=== PATIENT | male | born 1960 | race Two or more races ===

== ENCOUNTER 2021-08-21 13:28 | Day surgery (SDC) | payer MEDICAID, SELFPAY ==
[2021-08-17 11:16] LABS: BASOPHILS % (AUTO) 0.6 % (0-1); EOSINOPHILS # (AUTO) 0.1 X10'3 (0-0.9); EOSINOPHILS % (AUTO) 2.3 % (0-6); HEMATOCRIT 45.8 % (42.0-52.0); HEMOGLOBIN 15.4 g/dl (14.0-17.9); LYMPHOCYTES # (AUTO) 1.2 X10'3 (1.1-4.8); LYMPHOCYTES % (AUTO) 21.2 % (21-51); MEAN CORPUSCULAR HEMOGLOBIN 28.7 PG (27.0-31.0); MEAN CORPUSCULAR HGB CONC 33.7 g/dL (33.0-36.5); MEAN CORPUSCULAR VOLUME 85.3 FL (78-98); MEAN PLATELET VOLUME 8.6 FL (7.4-10.4); MONOCYTES # (AUTO) 0.6 X10'3 (0-0.9); MONOCYTES % (AUTO) 10.5 % (2-12); NEUTROPHILS # (AUTO) 3.9 X10'3 (1.8-7.7); NEUTROPHILS % (AUTO) 65.4 % (42-75); PLATELET COUNT 233 X10'3 (140-440); RED BLOOD COUNT 5.37 X10'6 (4.70-6.10); RED CELL DISTRIBUTION WIDTH 13.4 % (11.5-14.5); WHITE BLOOD COUNT 5.9 X10'3 (4.5-11.0)
[2021-08-17 11:24] LABS: APTT 33 SECONDS (22-32)
[2021-08-17 11:26] LABS: ALBUMIN 3.8 G/DL (3.4-5.0); ANION GAP 5 (8-16); BLOOD UREA NITROGEN 24 MG/DL (7-18); CALCIUM 8.9 MG/DL (8.5-10.1); CHLORIDE 107 MMOL/L (99-107); CHOL/HDL RATIO 6.1 (0.00-4.99); CHOLESTEROL 219 MG/DL (0-200); CREATININE 1.09 MG/DL (0.60-1.10); GLUCOSE 92 MG/DL (70-104); HDL CHOLESTEROL 36 MG/DL (35-60); LDL CHOLESTEROL 149 MG/DL (50-100); POTASSIUM 4.6 MMOL/L (3.5-5.1); SODIUM 141 MMOL/L (135-145); TOTAL CARBON DIOXIDE 28.7 MMOL/L (24-32); TRIGLYCERIDES 83 MG/DL (20-135); eGFR 69 ML/MIN
[~2021-08-21] VITALS: Ht 170.2 cm; Wt 88.1 kg
[2021-08-21] VITALS (8 sets, daily range): BP systolic 128–152; BP diastolic 69–89
[~2021-08-21 13:28] MED LIST: iohexol 350MG/ML 100ml bottle IV ONE
[2021-08-21] MEDS ORDERED: normal saline 1,000 ML IV SCH (13:45)
[2021-08-21] MEDS ORDERED: LORazepam 0.5 MG tablet PO PRN (13:45)
[2021-08-21] MEDS ORDERED: diphenhydrAMINE 25mg capsule PO PRN (13:45)
[2021-08-21] MEDS ORDERED: NITR0.4T48 (13:49)
[2021-08-21] MEDS ORDERED: CHOL500049 PO (13:49)
[2021-08-21] MEDS ORDERED: ASPI-1071 PO (14:01)
[2021-08-21] MEDS ORDERED: ramipril PO (14:01)
[2021-08-21] MEDS ORDERED: ATOR40TA PO (14:01)
[2021-08-21] MEDS ORDERED: nitroGLYCERIN-Tridil 50MG/D5W 250 ML IV ONE (16:00)
[2021-08-21] MEDS ORDERED: midazolam 1 mg/ML 2ml injection ONE (16:01)
[2021-08-21] MEDS ORDERED: iohexol 350MG/ML 100ml bottle IV ONE (16:01)
[2021-08-21] MEDS ORDERED: heparin 1,000unit/ml 10ml vial 10 ML ONE (16:01)
[2021-08-21] MEDS ORDERED: fentaNYL/PF 50MCG/1 ML 2ML syringe ONE (16:01)
[2021-08-21] MEDS ORDERED: verapamil 2.5 mg/ml inj IV ONE (16:03)
== END 2021-08-21 19:05 | disposition home or self-care (01) ==
LOC: SSTAY O 13:28
PROVIDERS: ATTEND Internal Medicine Interventional Cardiology
DX: R07.89 Other chest pain (principal); I25.118 Atherosclerotic heart disease of native coronary artery with other forms of angina pectoris; I10 Essential (primary) hypertension; E78.5 Hyperlipidemia, unspecified; I45.10 Unspecified right bundle-branch block; Z95.5 Presence of coronary angioplasty implant and graft; Z79.82 Long term (current) use of aspirin; Z79.899 Other long term (current) drug therapy; Z87.891 Personal history of nicotine dependence
CPT/HCPCS: 36415; 80048; 80061; 85025; 85610; 85730; 93005; 93458; 99152; C1769; C1894; J1644; J2250; J3010; J3490; J7030; Q0163; Q9967; 99153; A5120; A6258; A6402

== ENCOUNTER 2021-09-20 05:28 | Inpatient (IN) | payer MEDICAID ==
[2021-09-19 14:33] LABS: BASOPHILS # (AUTO) 0.1 X10'3 (0-0.2); BASOPHILS % (AUTO) 1.2 % (0-1); EOSINOPHILS # (AUTO) 0.3 X10'3 (0-0.9); EOSINOPHILS % (AUTO) 3.8 % (0-6); LYMPHOCYTES # (AUTO) 1.7 X10'3 (1.1-4.8); LYMPHOCYTES % (AUTO) 24.9 % (21-51); MEAN CORPUSCULAR HGB CONC 34.1 g/dL (33.0-36.5); MEAN CORPUSCULAR VOLUME 85.1 FL (78-98); MEAN PLATELET VOLUME 8.6 FL (7.4-10.4); MONOCYTES # (AUTO) 0.7 X10'3 (0-0.9); MONOCYTES % (AUTO) 9.6 % (2-12); NEUTROPHILS # (AUTO) 4.1 X10'3 (1.8-7.7); NEUTROPHILS % (AUTO) 60.5 % (42-75); PRE OP HEMATOCRIT 42.3 % (42.0-52.0); PRE OP HEMOGLOBIN 14.4 g/dL (14.0-17.9); PRE OP PLATELET COUNT 208 X10'3 (140-440); RED BLOOD COUNT 4.96 X10'6 (4.70-6.10); RED CELL DISTRIBUTION WIDTH 13.3 % (11.5-14.5)
[2021-09-19 14:46] LABS: PRE OP INR 0.9 INR; PRE OP PROTIME 9.8 SECONDS (9.0-12.0)
[2021-09-19 14:47] LABS: HEMOGLOBIN A1C 5.4 % (4.5-6.2)
[2021-09-19 14:49] LABS: CLARITY,URINE CLEAR (Clear); COLOR,URINE YELLOW (Yellow); GLUCOSE, URINE NEGATIVE (Neg); KETONES,URINE NEGATIVE (Neg); LEUKOCYTE ESTERASE ,URINE NEGATIVE (Neg); NITRITES, URINE NEGATIVE (Neg); OCCULT BLOOD,URINE NEGATIVE (Neg); PH,URINE 5.5 (4.8-8.0); PROTEIN,URINE NEGATIVE (Neg); UROBILINOGEN,URINE 0.2 E.U/dL (0.2-1.0)
[2021-09-19 14:50] LABS: ALBUMIN 3.8 G/DL (3.4-5.0); ALBUMIN/GLOBULIN RATIO 1.1 (1.1-1.5); ALKALINE PHOSPHATASE 84 IU/L (46-116); BLOOD UREA NITROGEN 21 MG/DL (7-18); BUN/CREATININE RATIO 20.4 (5.4-32.0); CALCIUM 8.9 MG/DL (8.5-10.1); CHLORIDE 107 MMOL/L (99-107); CREATININE 1.03 MG/DL (0.60-1.10); PRE OP ALT 36 U/L (30-65); PRE OP ANION GAP 6 (8-16); PRE OP AST 18 U/L (10-37); PRE OP BILIRUB, TOTAL 0.4 MG/DL (0.0-1.0); PRE OP GLUCOSE 92 MG/DL (70-104); PRE OP POTASSIUM 4.6 MMOL/L (3.4-5.1); PRE OP SODIUM 142 MMOL/L (135-145); TOTAL CARBON DIOXIDE 29.2 MMOL/L (24-32); TOTAL PROTEIN 7.2 G/DL (6.4-8.2); eGFR 73 ML/MIN
[2021-09-19 14:50] LABS: UA COLLECTION TYPE CLN CATCH MIDSTREAM
[2021-09-19 14:51] LABS: ABG BASE EXCESS -1.1 mmol/L (-2.0-2.0); ABG PCO2 (T) 36.7 mmHg (35.0-48.0); ABG PO2 (T) 89.5 mmHg (75.0-100.0); ALLEN'S TEST POSITIVE; FCOHb 0.3 % (0.0-3.9); FMetHb 0.2 % (0.0-1.5); FO2Hb 96.5 % (94-97); TOTAL HEMOGLOBIN 14.9 G/dl (14.0-18.0)
[~2021-09-20] VITALS: Ht 172.7 cm; Wt 70.4 kg
[2021-09-20] VITALS (18 sets, daily range): BP systolic 95–145; BP diastolic 47–87
[~2021-09-20 05:28] MED LIST changes: +ALT5C PO; +ASPI-1071 PO; +ATOR40TA PO; +ISOS30TA84 PO; +METO25TA6 PO; +ceFAZolin 1000mg inj ONE; -iohexol 350MG/ML 100ml bottle IV ONE; +ringers solution, lacted 1,000 ML IV SCH
[2021-09-20] MEDS ORDERED: famotidine 20mg tablet PO ONE (05:30)
[2021-09-20] MEDS ORDERED: mupirocin 2% nasal ointment 1gm UD NS ONE (05:30)
[2021-09-20] MEDS ORDERED: DOCUMENT DATE & TIME OF BETA-BLOCKER PO ONE (05:30)
[2021-09-20] MEDS ORDERED: albuterol 2.5 MG/3 ML nebule NEB ONE (05:30)
[2021-09-20] MEDS ORDERED: gabapentin 400mg capsule PO ONE (05:30)
[2021-09-20] MEDS ORDERED: LORazepam 2 mg/ml vial IV PRN (05:30)
[2021-09-20] MEDS ORDERED: vancomycin 1,500 MG in NS 300ml IV soln IV ONE (05:30)
[2021-09-20] MEDS ORDERED: Insulin Reg/NS 100units/100mL 100 ML IV SCH ×2 (05:30→11:30)
[2021-09-20] MEDS ORDERED: dextrose 50%-water 50ml dispensing syringe IV PRN ×2 (05:30→11:30)
[2021-09-20] MEDS ORDERED: ceFAZolin inj. 2,000 MG in dextrose 5%-water 100 ML IV ONE (05:30)
[2021-09-20] MEDS ORDERED: epiNEPHrine 1 mg/ml inj ONE ×2 (06:19→09:21)
[2021-09-20] MEDS ORDERED: SUFENTANIL CITRATE 50 MCG/ML 2ml ampule IV ONE (07:12)
[2021-09-20] MEDS ORDERED: midazolam 1 mg/ML 2ml injection ONE (07:12)
[2021-09-20] MEDS ORDERED: sevoflurane 250ml liquid IH ONE (07:30)
[2021-09-20] MEDS ORDERED: protamine sulf. 10mg/ml inj. IV ONE (07:30)
[2021-09-20] MEDS ORDERED: INSULIN R 100 UNIT in NS 100ML (1 UNIT/1 ML) BAG IV ONE (07:30)
[2021-09-20] MEDS ORDERED: nitroGLYCERIN in D5W 50mg/250ml (Tridil) infusion IV ONE (07:30)
[2021-09-20] MEDS ORDERED: DOPamine/D5W 400mg/250ml bag IV ONE (07:30)
[2021-09-20] MEDS ORDERED: aminocaproic acid 250 MG/1 ML inj. ONE (08:00)
[2021-09-20] MEDS ORDERED: albumin (human) 25% 100 ML IV solution IV ONE (08:00)
[2021-09-20] MEDS ORDERED: heparin 10,000 units/1 ML INJ ONE (08:00)
[2021-09-20] MEDS ORDERED: sodium bicarbonate (8.4%) 1 mEq/ml syringe ONE (08:00)
[2021-09-20] MEDS ORDERED: methylPREDNISolone sod succ 1000mg vial ONE (08:00)
[2021-09-20] MEDS ORDERED: MAGNESIUM SULFATE 4 MEQ/ML (5gm/10ml) injection ONE (08:00)
[2021-09-20] MEDS ORDERED: LIDOcaine 2% (20 mg/ml) 5ml cardiac syringe ONE (08:00)
[2021-09-20] MEDS ORDERED: mannitol 12.5gm/50mL VIAL IV ONE (08:00)
[2021-09-20] MEDS ORDERED: NORepinephrine 1 mg/ml inj IV ONE (08:00)
[2021-09-20] MEDS ORDERED: heparin 1,000 units/ml 10ml inj ONE (08:00)
[2021-09-20] MEDS ORDERED: calcium chloride 100 MG/1 ML inj IV ONE (08:00)
[2021-09-20 08:12] LABS: ABG BASE EXCESS -0.4 mmol/L (-2.0-2.0); ABG HCO3 23.6 mmol/L (22.0-26.0); ABG OXYGEN SATURATION 99.8 % (94-97); ABG PCO2 36.5 mmHg (35.0-48.0); ABG PO2 396.3 mmHg (75.0-100.0); CL (ABG) 107 mmol/L (98-110); FCOHb 0.5 % (0.0-3.9); FMetHb 0.3 % (0.0-1.5); GLUCOSE (ABG) 96 mg/dl (70-105); IONIZED CA (ABG) 1.15 mmol/L (1.10-1.43); K (ABG) 4.4 mmol/L (3.5-5.0); TOTAL HEMOGLOBIN 13.8 G/dl (14.0-18.0)
[2021-09-20] MEDS ORDERED: phenylephrine 10mg/ml inj. ONE (09:21)
[2021-09-20] MEDS ORDERED: LIDOcaine 2% (20mg/ml) 5ml vial ONE (09:21)
[2021-09-20] MEDS ORDERED: rocuronium 10mg/ml inj IV ONE (09:21)
[2021-09-20] MEDS ORDERED: etomidate 2mg/ml inj. ONE (09:21)
[2021-09-20 09:29] LABS: ABG BASE EXCESS 0.6 mmol/L (-2.0-2.0); ABG HCO3 24.4 mmol/L (22.0-26.0); ABG OXYGEN SATURATION 99.4 % (94-97); ABG PCO2 35.7 mmHg (35.0-48.0); ABG PO2 322.3 mmHg (75.0-100.0); CL (ABG) 103 mmol/L (98-110); FCOHb 0.3 % (0.0-3.9); FMetHb 0.3 % (0.0-1.5); FO2Hb 98.8 % (94-97); GLUCOSE (ABG) 103 mg/dl (70-105); IONIZED CA (ABG) 0.98 mmol/L (1.10-1.43); K (ABG) 4.3 mmol/L (3.5-5.0); TOTAL HEMOGLOBIN 10.7 G/dl (14.0-18.0)
[2021-09-20] MEDS ORDERED: ipratropium/albuterol 3ml nebule IH PRN (09:40)
[2021-09-20 09:54] LABS: ABG BASE EXCESS VENOUS 0.9 mmol/L (-2.0 - 2.0); ABG HCO3 VENOUS 26.1 mmol/L (21.0-28.0); ABG PO2 VENOUS 49.7 mmHg (25.0-35.0); CL (ABG) 104 mmol/L (98-110); FCOHb VENOUS 0.2 %; FMetHb VENOUS 0.3 % (0.0 - 0.5); FO2Hb VENOUS 85.5 %; GLUCOSE (ABG) 117 mg/dl (70-105); IONIZED CA (ABG) 1.03 mmol/L (1.10-1.43); K (ABG) 5.3 mmol/L (3.5-5.0); TOTAL HEMOGLOBIN 11.3 G/dl (14.0-18.0)
[2021-09-20 10:37] LABS: ABG BASE EXCESS -0.6 mmol/L (-2.0-2.0); ABG HCO3 23.7 mmol/L (22.0-26.0); ABG OXYGEN SATURATION 99.4 % (94-97); ABG PCO2 37.5 mmHg (35.0-48.0); ABG PO2 343.8 mmHg (75.0-100.0); CL (ABG) 104 mmol/L (98-110); FCOHb 0.4 % (0.0-3.9); FMetHb 0.3 % (0.0-1.5); FO2Hb 98.7 % (94-97); GLUCOSE (ABG) 131 mg/dl (70-105); IONIZED CA (ABG) 1.01 mmol/L (1.10-1.43); K (ABG) 5.6 mmol/L (3.5-5.0); TOTAL HEMOGLOBIN 11.2 G/dl (14.0-18.0)
[2021-09-20] MEDS ORDERED: SUfentanil 50mcg/ml 1ml amp IV ONE (11:03)
[2021-09-20 11:19] LABS: ABG BASE EXCESS VENOUS -0.5 mmol/L (-2.0 - 2.0); ABG PCO2 VENOUS 44.6 mmHg (41.0-54.0); CL (ABG) 102 mmol/L (98-110); FCOHb VENOUS 0.5 %; FHHb VENOUS 19.4 %; FMetHb VENOUS 0.3 % (0.0 - 0.5); FO2Hb VENOUS 79.8 %; GLUCOSE (ABG) 127 mg/dl (70-105); IONIZED CA (ABG) 1.17 mmol/L (1.10-1.43); K (ABG) 4.5 mmol/L (3.5-5.0)
[2021-09-20] MEDS ORDERED: potassium Cl 20 mEq SR tablet PO PRN (11:30)
[2021-09-20] MEDS ORDERED: DOPamine 400mg/D5W 250ml 250 ML IV PRN (11:30)
[2021-09-20] MEDS ORDERED: Neutra Phos packet PO PRN (11:30)
[2021-09-20] MEDS ORDERED: ondansetron/PF 4mg/2ml inj IV PRN (11:30)
[2021-09-20] MEDS ORDERED: bisacodyl 10mg suppository rectal RC PRN (11:30)
[2021-09-20] MEDS ORDERED: nitroGLYCERIN-Tridil 50MG/D5W 250 ML IV PRN ×2 (11:30→11:56)
[2021-09-20] MEDS ORDERED: magnesium citrate 296ml oral solution PO PRN (11:30)
[2021-09-20] MEDS ORDERED: sodium chloride 0.45% 1,000 ML IV SCH (11:30)
[2021-09-20] MEDS ORDERED: normal saline 250ml IV soln 250 ML IV PRN (11:30)
[2021-09-20] MEDS ORDERED: insulin glargine (Lantus) pen - multi-dose SQ PRN (11:30)
[2021-09-20] MEDS ORDERED: sodium phosphate inj. 15 MMOL in dextrose 5%-water 250 ML IV PRN (11:30)
[2021-09-20] MEDS ORDERED: potassium CL 10mEq/100ml bag 100 ML IV PRN (11:30)
[2021-09-20] MEDS ORDERED: sodium phosphate inj. 30 MMOL in dextrose 5%-water 250 ML IV PRN (11:30)
[2021-09-20] MEDS ORDERED: metoclopramide 5 mg/ml inj IV PRN (11:30)
[2021-09-20] MEDS ORDERED: morphine 2 MG/ML inj. syringe IV PRN (11:30)
[2021-09-20] MEDS ORDERED: magnesium hydroxide 30ml (MOM) UD suspension PO PRN (11:30)
[2021-09-20] MEDS ORDERED: mineral oil 133ml enema RC PRN (11:30)
[2021-09-20] MEDS ORDERED: acetaminophen 325mg tablet PO PRN ×2 (11:30)
[2021-09-20] MEDS ORDERED: magnesium 4gm in 100ml NS 100 ML IV PRN (11:30)
[2021-09-20] MEDS ORDERED: niCARDipine-NS 40mg/200ml IVPB 200 ML IV PRN ×2 (11:30→11:56)
--- NOTE | 2021-09-20 11:45 | NUR ---
Received to room 2009, accompanied by MDs and surgical crew. Placed on ventilator, to residential monitor, arterial line and PA line pressure zeroed & monitored. Chest tubes to suction at 20 cm. Saldivar cath to gravity drainage. Dressings are dry and intact. See assessment record. All vasoactive drugs are infusing via central line.
[2021-09-20] MEDS ORDERED: acetaminophen 1,000mg/100ml IV 100 ML IV ONE (11:47)
[2021-09-20 11:56] LABS: BASOPHILS % (AUTO) 0.2 % (0-1); EOSINOPHILS # (AUTO) 0.1 X10'3 (0-0.9); EOSINOPHILS % (AUTO) 0.7 % (0-6); HEMATOCRIT 37.9 % (42.0-52.0); HEMOGLOBIN 12.9 g/dl (14.0-17.9); LYMPHOCYTES # (AUTO) 0.9 X10'3 (1.1-4.8); LYMPHOCYTES % (AUTO) 7.4 % (21-51); MEAN CORPUSCULAR HEMOGLOBIN 28.9 PG (27.0-31.0); MEAN PLATELET VOLUME 8.6 FL (7.4-10.4); MONOCYTES # (AUTO) 0.6 X10'3 (0-0.9); MONOCYTES % (AUTO) 5.1 % (2-12); NEUTROPHILS # (AUTO) 10.4 X10'3 (1.8-7.7); NEUTROPHILS % (AUTO) 86.6 % (42-75); PLATELET COUNT 146 X10'3 (140-440); RED BLOOD COUNT 4.46 X10'6 (4.70-6.10); RED CELL DISTRIBUTION WIDTH 13.4 % (11.5-14.5)
--- NOTE | 2021-09-20 12:04 | NUR ---
Nutrition consult: Pt s/p CABG x 5 today. Pt would benefit from nutrition therapy education once stable. Will continue to follow. Addendum: 09/20/21 at [address] Amended: Links added.
[2021-09-20 12:07] LABS: ABG BASE EXCESS -2.4 mmol/L (-2.0-2.0); ABG OXYGEN SATURATION 99.3 % (94-97); ABG PCO2 (T) 34.7 mmHg (35.0-48.0); ABG PO2 (T) 247.5 mmHg (75.0-100.0); FCOHb 0.3 % (0.0-3.9); FMetHb 0.4 % (0.0-1.5); FO2Hb 98.6 % (94-97); PATIENT TEMPERATURE 35.6; PEEP 5 cm H2O; RESPIRATORY RATE 12 b/min; TIDAL VOLUME 600 mL; TOTAL HEMOGLOBIN 14.2 G/dl (14.0-18.0)
[2021-09-20 12:12] LABS: APTT 27 SECONDS (22-32)
[2021-09-20 12:15] LABS: ALANINE AMINOTRANSFERASE 27 U/L (12-78); ALBUMIN 3.1 G/DL (3.4-5.0); ALBUMIN/GLOBULIN RATIO 1.4 (1.1-1.5); ALKALINE PHOSPHATASE 57 IU/L (46-116); ANION GAP 8 (8-16); ASPARTATE AMINO TRANSFERASE 27 U/L (10-37); BILIRUBIN,TOTAL 0.9 MG/DL (0.1-1.0); BLOOD UREA NITROGEN 21 MG/DL (7-18); BUN/CREATININE RATIO 19.3 (5.4-32.0); CALCIUM 8.1 MG/DL (8.5-10.1); CHLORIDE 106 MMOL/L (99-107); CREATININE 1.09 MG/DL (0.60-1.10); GLUCOSE 136 MG/DL (70-104); MAGNESIUM 2.3 MG/DL (1.5-2.4); PHOSPHORUS 3.3 MG/DL (2.3-4.5); SODIUM 140 MMOL/L (135-145); TOTAL CARBON DIOXIDE 25.7 MMOL/L (24-32); TOTAL PROTEIN 5.3 G/DL (6.4-8.2); eGFR 69 ML/MIN
[2021-09-20] MEDS: potassium Cl 20mEq/100mL bag 100 ML IV PRN ×4 (12:29→19:07)
[2021-09-20] MEDS: gabapentin 300mg capsule PO SCH ×2 (12:30→21:21)
[2021-09-20] MEDS: magnesium 2GM in 50ml NS 50 ML IV PRN (12:30)
[2021-09-20] MEDS: ketorolac tromethamine 15mg/ml inj. IV SCH ×2 (14:14→20:19)
[2021-09-20] MEDS: albumin (Human) 5% 250ml 250 ML IV PRN ×2 (14:42→15:28)
[2021-09-20] MEDS: ceFAZolin/D5W- 1GM premix 50 ML IV SCH (15:32)
--- NOTE | 2021-09-20 15:41 | NUR ---
SBP in the upper 80s with CI of 1.9, 2nd Albumin administered as ordered.
[2021-09-20] MEDS: morphine 4 MG/ML inj SYRINge IV PRN (16:51)
[2021-09-20 17:26] LABS: BASOPHILS % (AUTO) 0.1 % (0-1); EOSINOPHILS % (AUTO) 0.1 % (0-6); HEMATOCRIT 37.8 % (42.0-52.0); HEMOGLOBIN 12.6 g/dl (14.0-17.9); LYMPHOCYTES # (AUTO) 0.6 X10'3 (1.1-4.8); LYMPHOCYTES % (AUTO) 3.9 % (21-51); MEAN CORPUSCULAR HEMOGLOBIN 28.4 PG (27.0-31.0); MEAN CORPUSCULAR HGB CONC 33.3 g/dL (33.0-36.5); MEAN CORPUSCULAR VOLUME 85.3 FL (78-98); MONOCYTES # (AUTO) 0.7 X10'3 (0-0.9); MONOCYTES % (AUTO) 5.1 % (2-12); NEUTROPHILS # (AUTO) 12.8 X10'3 (1.8-7.7); NEUTROPHILS % (AUTO) 90.8 % (42-75); PLATELET COUNT 149 X10'3 (140-440); RED BLOOD COUNT 4.43 X10'6 (4.70-6.10); RED CELL DISTRIBUTION WIDTH 13.5 % (11.5-14.5); WHITE BLOOD COUNT 14.1 X10'3 (4.5-11.0)
[2021-09-20 17:34] LABS: ALBUMIN 3.5 G/DL (3.4-5.0); ANION GAP 7 (8-16); BLOOD UREA NITROGEN 21 MG/DL (7-18); BUN/CREATININE RATIO 16.8 (5.4-32.0); CALCIUM 7.9 MG/DL (8.5-10.1); CHLORIDE 111 MMOL/L (99-107); CREATININE 1.25 MG/DL (0.60-1.10); GLUCOSE 113 MG/DL (70-104); MAGNESIUM 2.5 MG/DL (1.5-2.4); PHOSPHORUS 3.4 MG/DL (2.3-4.5); POTASSIUM 3.9 MMOL/L (3.5-5.1); SODIUM 142 MMOL/L (135-145); TOTAL CARBON DIOXIDE 23.7 MMOL/L (24-32); eGFR 59 ML/MIN
[2021-09-20 17:48] LABS: ABG BASE EXCESS -6.7 mmol/L (-2.0-2.0); ABG HCO3 17.9 mmol/L (22.0-26.0); ABG PCO2 (T) 33.1 mmHg (35.0-48.0); ABG PO2 (T) 119.9 mmHg (75.0-100.0); FMetHb 0.3 % (0.0-1.5); FO2Hb 97.7 % (94-97); PEEP 5 cm H2O; TIDAL VOLUME 468 mL; TOTAL HEMOGLOBIN 13.3 G/dl (14.0-18.0)
--- NOTE | 2021-09-20 18:00 | NUR ---
ABG with normalized pH with slightly decreased pCO2 and Bicarb; orders to extubate per Dr. Perez. CI 3.1; okay to D/C [place] line.
--- NOTE | 2021-09-20 18:17 | NUR ---
Problems reprioritized. Patient report given, questions answered & plan of care reviewed with Louise BLOUNT.
--- NOTE | 2021-09-20 19:00 | NUR ---
Received report from MINE Amaya; questions answered; pt sleepy but arousable, no complaints at this time; pt in SR, BP stable, small amt of tridil for grafts; remains on insulin gtt; minimal from CTs, UO adeq.
[2021-09-20] MEDS: sennosides/docusate sodium tablet PO SCH (20:00)
[2021-09-20] MEDS: vancomycin/NS 1 GM ADD-VANTAGE 250 ML IV SCH (20:19)
[2021-09-20] MEDS: atorvastatin 10mg tablet PO SCH (20:41)
--- NOTE | 2021-09-20 22:00 | NUR ---
Pt sleeping when not disturbed; good pain control w/morphine and toradol; VS remain stable, PA line d/c's per orders; UO borderline.
[2021-09-21] VITALS (24 sets, daily range): BP systolic 97–122; BP diastolic 50–76
[2021-09-21] MEDS: ceFAZolin/D5W- 1GM premix 50 ML IV SCH ×4 (00:12→23:15)
[2021-09-21] MEDS: morphine 4 MG/ML inj SYRINge IV PRN ×3 (01:06→10:50)
[2021-09-21] MEDS: mupirocin 2% nasal ointment 1gm UD NS SCH ×3 (01:07→19:47)
--- NOTE | 2021-09-21 02:15 | NUR ---
Pt sleeping after medicated for pain; no change in status; VS, SR, good BP, UO remains borderline. minimal serosang from CTs.
[2021-09-21] MEDS: ketorolac tromethamine 15mg/ml inj. IV SCH ×2 (02:16→07:47)
[2021-09-21 03:04] LABS: BASOPHILS % (AUTO) 0 % (0-1); EOSINOPHILS % (AUTO) 0 % (0-6); HEMATOCRIT 37.6 % (42.0-52.0); HEMOGLOBIN 12.3 g/dl (14.0-17.9); LYMPHOCYTES # (AUTO) 0.6 X10'3 (1.1-4.8); LYMPHOCYTES % (AUTO) 4.1 % (21-51); MEAN CORPUSCULAR HEMOGLOBIN 28.3 PG (27.0-31.0); MEAN CORPUSCULAR HGB CONC 32.8 g/dL (33.0-36.5); MEAN CORPUSCULAR VOLUME 86.3 FL (78-98); MEAN PLATELET VOLUME 9.1 FL (7.4-10.4); MONOCYTES # (AUTO) 0.7 X10'3 (0-0.9); MONOCYTES % (AUTO) 4.8 % (2-12); NEUTROPHILS # (AUTO) 13.1 X10'3 (1.8-7.7); NEUTROPHILS % (AUTO) 91.1 % (42-75); PLATELET COUNT 147 X10'3 (140-440); RED BLOOD COUNT 4.35 X10'6 (4.70-6.10); RED CELL DISTRIBUTION WIDTH 13.8 % (11.5-14.5); WHITE BLOOD COUNT 14.4 X10'3 (4.5-11.0)
[2021-09-21 03:10] LABS: APTT 25 SECONDS (22-32)
[2021-09-21 03:17] LABS: ALANINE AMINOTRANSFERASE 28 U/L (12-78); ALBUMIN 3.4 G/DL (3.4-5.0); ALBUMIN/GLOBULIN RATIO 1.4 (1.1-1.5); ALKALINE PHOSPHATASE 48 IU/L (46-116); ANION GAP 9 (8-16); ASPARTATE AMINO TRANSFERASE 25 U/L (10-37); BILIRUBIN,TOTAL 0.7 MG/DL (0.1-1.0); BLOOD UREA NITROGEN 24 MG/DL (7-18); BUN/CREATININE RATIO 24.7 (5.4-32.0); CALCIUM 7.8 MG/DL (8.5-10.1); CHLORIDE 107 MMOL/L (99-107); CREATININE 0.97 MG/DL (0.60-1.10); GLUCOSE 135 MG/DL (70-104); MAGNESIUM 2.2 MG/DL (1.5-2.4); PHOSPHORUS 4.6 MG/DL (2.3-4.5); POTASSIUM 4.4 MMOL/L (3.5-5.1); SODIUM 140 MMOL/L (135-145); TOTAL CARBON DIOXIDE 24.4 MMOL/L (24-32); TOTAL PROTEIN 5.8 G/DL (6.4-8.2); eGFR 79 ML/MIN
[2021-09-21 05:51] LABS: ACT @ 1.70 U 249 SEC (193-297); ACT @ 2.84 U 364 SEC (260-420); BASELINE ACT 138 SEC (101-148); PATIENT WEIGHT 88.0k KG
[2021-09-21 05:52] LABS: ACTIVATED CLOTTING TIME 113 SEC (101-148)
[2021-09-21] MEDS: potassium Cl 20mEq/100mL bag 100 ML IV PRN ×3 (06:15→12:53)
--- NOTE | 2021-09-21 06:31 | NUR ---
Pt medicated with morphine for good pain control; VS remain stable, UO remains borderline; report given to MINE Amaya; questions answered.
[2021-09-21] MEDS: vancomycin/NS 1 GM ADD-VANTAGE 250 ML IV SCH ×2 (07:47→19:47)
[2021-09-21] MEDS: gabapentin 300mg capsule PO SCH ×3 (07:48→19:47)
[2021-09-21] MEDS: sennosides/docusate sodium tablet PO SCH ×2 (07:48→19:47)
[2021-09-21] MEDS: aspirin 81mg tab.chew PO SCH (07:48)
[2021-09-21] MEDS: HYDROcodone/acetaminophen 10/325mg tab PO PRN ×5 (08:24→22:50)
[2021-09-21] MEDS: metoprolol tartrate 12.5mg (1/2 tablet) PO SCH ×2 (08:24→19:47)
--- NOTE | 2021-09-21 10:11 | NUR ---
Patient report given to Aleja Soler RN with all questions answered. RN aware to give next dose of Magnesium once Potassium is transfused.
--- NOTE | 2021-09-21 10:50 | NUR ---
at bedside Pt states has pain in left shoulder 4/10 " Pain meds given earlier for pain "states helped some" VSS med with MS as ordered Reposit for comfort
--- NOTE | 2021-09-21 12:16 | NUR ---
Pt resting with no c/o
--- NOTE | 2021-09-21 13:00 | NUR ---
pt assist up to bedside chair harriet well Did IS and flutter valve weak non prod cough noted Has mod amt of pain with coughing states pain meds help
--- NOTE | 2021-09-21 14:22 | NUR ---
Pt assist back to bed C/o fo inc pain med with lisaco at bedside
--- NOTE | 2021-09-21 17:30 | NUR ---
amb in ortiz 100 feet sl dizzy and unsteady VSS sat 88 % 0n Room air Assist to chair at bedside present Chest tubes with mod amt of sero sang drainage
--- NOTE | 2021-09-21 18:10 | NUR ---
Problems reprioritized. Patient report given, questions answered & plan of care reviewed with Andree RN.
[2021-09-21] MEDS: atorvastatin 10mg tablet PO SCH (19:47)
[2021-09-22] VITALS (18 sets, daily range): BP systolic 95–147; BP diastolic 63–84
[2021-09-22 02:21] LABS: BASOPHILS % (AUTO) 0.1 % (0-1); EOSINOPHILS % (AUTO) 0 % (0-6); HEMATOCRIT 37.1 % (42.0-52.0); HEMOGLOBIN 12.4 g/dl (14.0-17.9); LYMPHOCYTES # (AUTO) 0.7 X10'3 (1.1-4.8); LYMPHOCYTES % (AUTO) 3.8 % (21-51); MEAN CORPUSCULAR HEMOGLOBIN 28.9 PG (27.0-31.0); MEAN CORPUSCULAR HGB CONC 33.4 g/dL (33.0-36.5); MEAN CORPUSCULAR VOLUME 86.7 FL (78-98); MEAN PLATELET VOLUME 9.3 FL (7.4-10.4); MONOCYTES # (AUTO) 1.7 X10'3 (0-0.9); MONOCYTES % (AUTO) 9.3 % (2-12); NEUTROPHILS # (AUTO) 16.1 X10'3 (1.8-7.7); NEUTROPHILS % (AUTO) 86.8 % (42-75); PLATELET COUNT 151 X10'3 (140-440); RED BLOOD COUNT 4.28 X10'6 (4.70-6.10); RED CELL DISTRIBUTION WIDTH 14.1 % (11.5-14.5); WHITE BLOOD COUNT 18.6 X10'3 (4.5-11.0)
[2021-09-22 02:49] LABS: ALBUMIN 3.1 G/DL (3.4-5.0); ANION GAP 4 (8-16); BLOOD UREA NITROGEN 28 MG/DL (7-18); CHLORIDE 103 MMOL/L (99-107); CREATININE 1.12 MG/DL (0.60-1.10); GLUCOSE 127 MG/DL (70-104); MAGNESIUM 2.1 MG/DL (1.5-2.4); PHOSPHORUS 3.1 MG/DL (2.3-4.5); POTASSIUM 5.4 MMOL/L (3.5-5.1); SODIUM 134 MMOL/L (135-145); eGFR 67 ML/MIN
[2021-09-22] MEDS: HYDROcodone/acetaminophen 10/325mg tab PO PRN ×6 (03:08→20:04)
[2021-09-22] MEDS: magnesium 2GM in 50ml NS 50 ML IV PRN (04:17)
--- NOTE | 2021-09-22 06:30 | NUR ---
Patient in room CICU 2008. I have received report from Andree BLOUNT and had the opportunity to ask questions and assume patient care.
--- NOTE | 2021-09-22 07:30 | NUR ---
Assist up to chair harriet well VSS Doing IS and Flutter value on own Chest tube with mod amt of serous sang drainage Lung sounds clear but diminished
[2021-09-22] MEDS: pantoprazole 40mg Tablet.DR PO SCH (07:41)
[2021-09-22] MEDS: metoprolol tartrate 12.5mg (1/2 tablet) PO SCH ×2 (08:34→19:57)
[2021-09-22] MEDS: mupirocin 2% nasal ointment 1gm UD NS SCH (08:34)
[2021-09-22] MEDS: sennosides/docusate sodium tablet PO SCH ×2 (08:35→19:56)
[2021-09-22] MEDS: aspirin 81mg tab.chew PO SCH (08:35)
[2021-09-22] MEDS: gabapentin 300mg capsule PO SCH (08:35)
[2021-09-22] MEDS: furosemide 40mg/4ml inj IV SCH (09:56)
--- NOTE | 2021-09-22 10:00 | NUR ---
Amb with PT harriet well back to bed Dr Perez at bedside Chest tubes removed and pacing wires removed without difficulty Lasix to be given will d/tr tinoco
[2021-09-22] MEDS: ketorolac tromethamine 15mg/ml inj. IV SCH ×2 (11:15→19:58)
--- NOTE | 2021-09-22 12:00 | NUR ---
Problems reprioritized. Patient report given, questions answered & plan of care reviewed with Dangelo BLOUNT.
--- NOTE | 2021-09-22 12:00 | NUR ---
Patient in room CICU 2009. I have received report from Aleja and had the opportunity to ask questions and assume patient care.
--- NOTE | 2021-09-22 16:42 | NUR ---
Report called to receiving nurse Candice. Transferred via wheelchair Belongings with patient . NO issues in transport. Special Issues communicated to receiving nurse.
--- NOTE | 2021-09-22 16:51 | NUR ---
Patient in room PCU 3010. I have received report from Dangelo BLOUNT and had the opportunity to ask questions and assume patient care.
--- NOTE | 2021-09-22 18:33 | NUR ---
patient appears stable ,orientated to room . present. VSS. Dressing to mid chest CDI . Medicated for pain 1729. Report given to Kamilla BLOUNT
[2021-09-22] MEDS: atorvastatin 10mg tablet PO SCH (20:00)
[2021-09-23 02:00] VITALS: BP 115/76
[2021-09-23] MEDS: ketorolac tromethamine 15mg/ml inj. IV SCH ×2 (02:16→09:59)
[2021-09-23 06:00] VITALS: BP 139/78
[2021-09-23 06:08] LABS: BASOPHILS % (AUTO) 0.1 % (0-1); EOSINOPHILS # (AUTO) 0.1 X10'3 (0-0.9); EOSINOPHILS % (AUTO) 1.1 % (0-6); HEMATOCRIT 35.8 % (42.0-52.0); LYMPHOCYTES # (AUTO) 1.1 X10'3 (1.1-4.8); LYMPHOCYTES % (AUTO) 9.8 % (21-51); MEAN CORPUSCULAR HEMOGLOBIN 28.9 PG (27.0-31.0); MEAN CORPUSCULAR HGB CONC 33.5 g/dL (33.0-36.5); MEAN CORPUSCULAR VOLUME 86.5 FL (78-98); MEAN PLATELET VOLUME 9.4 FL (7.4-10.4); MONOCYTES # (AUTO) 1.6 X10'3 (0-0.9); NEUTROPHILS # (AUTO) 8.5 X10'3 (1.8-7.7); PLATELET COUNT 141 X10'3 (140-440); RED BLOOD COUNT 4.14 X10'6 (4.70-6.10); RED CELL DISTRIBUTION WIDTH 13.7 % (11.5-14.5); WHITE BLOOD COUNT 11.3 X10'3 (4.5-11.0)
--- NOTE | 2021-09-23 06:39 | NUR ---
Patient in room PCU 3010. I have received report from Filemon BLOUNT and had the opportunity to ask questions and assume patient care.
[2021-09-23 06:52] LABS: ALBUMIN 2.9 G/DL (3.4-5.0); ANION GAP 5 (8-16); BLOOD UREA NITROGEN 33 MG/DL (7-18); BUN/CREATININE RATIO 30.3 (5.4-32.0); CALCIUM 8.3 MG/DL (8.5-10.1); CHLORIDE 102 MMOL/L (99-107); CREATININE 1.09 MG/DL (0.60-1.10); GLUCOSE 100 MG/DL (70-104); MAGNESIUM 2.1 MG/DL (1.5-2.4); PHOSPHORUS 3.3 MG/DL (2.3-4.5); POTASSIUM 4.5 MMOL/L (3.5-5.1); SODIUM 136 MMOL/L (135-145); TOTAL CARBON DIOXIDE 29.5 MMOL/L (24-32); eGFR 69 ML/MIN
[2021-09-23] MEDS ORDERED: magnesium citrate 296ml oral solution PO ONE (08:20)
[2021-09-23] MEDS ORDERED: HYDR-3972 PO (08:23)
[2021-09-23] MEDS: pantoprazole 40mg Tablet.DR PO SCH (09:57)
[2021-09-23] MEDS: sennosides/docusate sodium tablet PO SCH ×2 (09:57→20:00)
[2021-09-23] MEDS: metoprolol tartrate 12.5mg (1/2 tablet) PO SCH ×2 (09:58→20:13)
[2021-09-23] MEDS: furosemide 40mg/4ml inj IV SCH (10:01)
[2021-09-23] MEDS: aspirin 81mg tab.chew PO SCH (10:09)
[2021-09-23 11:00] VITALS: BP 161/91
[2021-09-23 15:00] VITALS: BP 122/72
[2021-09-23] MEDS: HYDROcodone/acetaminophen 10/325mg tab PO PRN ×2 (16:56→21:13)
[2021-09-23 18:00] VITALS: BP 121/64
[2021-09-23] MEDS: atorvastatin 10mg tablet PO SCH (20:13)
[2021-09-23 22:00] VITALS: BP 107/70
[2021-09-24] MEDS: HYDROcodone/acetaminophen 10/325mg tab PO PRN ×2 (05:19→09:36)
--- NOTE | 2021-09-24 06:23 | NUR ---
Patient in room PCU 3010. I have received report from Elaine BLOUNT and had the opportunity to ask questions and assume patient care.
[2021-09-24 06:46] VITALS: BP 121/72
[2021-09-24 06:51] LABS: BASOPHILS % (AUTO) 0.4 % (0-1); EOSINOPHILS # (AUTO) 0.2 X10'3 (0-0.9); EOSINOPHILS % (AUTO) 3.2 % (0-6); HEMATOCRIT 37.5 % (42.0-52.0); HEMOGLOBIN 12.5 g/dl (14.0-17.9); LYMPHOCYTES # (AUTO) 0.7 X10'3 (1.1-4.8); LYMPHOCYTES % (AUTO) 10.6 % (21-51); MEAN CORPUSCULAR HEMOGLOBIN 28.6 PG (27.0-31.0); MEAN CORPUSCULAR HGB CONC 33.3 g/dL (33.0-36.5); MEAN CORPUSCULAR VOLUME 85.8 FL (78-98); MEAN PLATELET VOLUME 9.2 FL (7.4-10.4); MONOCYTES # (AUTO) 1.1 X10'3 (0-0.9); MONOCYTES % (AUTO) 17.1 % (2-12); NEUTROPHILS # (AUTO) 4.5 X10'3 (1.8-7.7); NEUTROPHILS % (AUTO) 68.7 % (42-75); PLATELET COUNT 160 X10'3 (140-440); RED BLOOD COUNT 4.37 X10'6 (4.70-6.10); RED CELL DISTRIBUTION WIDTH 13.7 % (11.5-14.5); WHITE BLOOD COUNT 6.6 X10'3 (4.5-11.0)
[2021-09-24 07:06] LABS: ALBUMIN 2.7 G/DL (3.4-5.0); ANION GAP 4 (8-16); BLOOD UREA NITROGEN 26 MG/DL (7-18); BUN/CREATININE RATIO 27.1 (5.4-32.0); CALCIUM 8.6 MG/DL (8.5-10.1); CHLORIDE 105 MMOL/L (99-107); CREATININE 0.96 MG/DL (0.60-1.10); GLUCOSE 100 MG/DL (70-104); MAGNESIUM 2.1 MG/DL (1.5-2.4); PHOSPHORUS 3.1 MG/DL (2.3-4.5); POTASSIUM 4.3 MMOL/L (3.5-5.1); SODIUM 141 MMOL/L (135-145); TOTAL CARBON DIOXIDE 31.7 MMOL/L (24-32); eGFR 80 ML/MIN
[2021-09-24 07:30] LABS: PLATELET ESTIMATE NORMAL; TOTAL CELLS COUNTED 100
[2021-09-24] MEDS: aspirin 81mg tab.chew PO SCH (09:03)
[2021-09-24 09:04] VITALS: BP_SYST 121
[2021-09-24] MEDS: sennosides/docusate sodium tablet PO SCH (09:04)
[2021-09-24] MEDS: metoprolol tartrate 12.5mg (1/2 tablet) PO SCH (09:04)
[2021-09-24] MEDS: furosemide 40mg/4ml inj IV SCH (09:06)
--- NOTE | 2021-09-24 10:40 | NUR ---
PAGER ID: [phone] MESSAGE: [phone] [id number] Re: [id number] Patient sats at 88% on 6L NC, notified Letha, put patient back on HIGH flow at this time. Will notify RT to be more aggressive in titration. Thanks Addendum: 09/24/21 at 1041 by Yan Riley RN note entered on incorrect patient disreguard.
--- NOTE | 2021-09-24 11:21 | NUR ---
Orienty documentation: I have reviewed all interventions, assessments performed and documented by Carina BLOUNT.
--- NOTE | 2021-09-24 11:31 | NUR ---
Patient taken to private car via wheelchair accompanied by , condition stable. Personal belongings with patient. Patient expressed verbal understanding of discharge teaching and medications.
== END 2021-09-24 10:35 | disposition home or self-care (01) | DRG 166 ==
LOC: PAS IN 05:28 → CICU 2S 08:32 → PCU 3S 09-22 16:50
PROVIDERS: ADMIT Thoracic Surgery (Cardiothoracic Vascular Surgery); ATTEND Thoracic Surgery (Cardiothoracic Vascular Surgery)
PROC: 02100Z8 Bypass Coronary Artery, One Artery from Right Internal Mammary, Open Approach (ICD-10-PCS; 2021-09-20)
PROC: 0210093 Bypass Coronary Artery, One Artery from Coronary Artery with Autologous Venous Tissue, Open Approach (ICD-10-PCS; 2021-09-20)
PROC: 5A1221Z Performance of Cardiac Output, Continuous (ICD-10-PCS; 2021-09-20)
PROC: B24BZZ4 Ultrasonography of Heart with Aorta, Transesophageal (ICD-10-PCS; 2021-09-20)
PROC: 06BP4ZZ Excision of Right Saphenous Vein, Percutaneous Endoscopic Approach (ICD-10-PCS; 2021-09-20)
PROC: 021109W Bypass Coronary Artery, Two Arteries from Aorta with Autologous Venous Tissue, Open Approach (ICD-10-PCS; 2021-09-20)
PROC: 02100Z9 Bypass Coronary Artery, One Artery from Left Internal Mammary, Open Approach (ICD-10-PCS; principal; 2021-09-20 07:30)
DX: I25.10 Atherosclerotic heart disease of native coronary artery without angina pectoris (principal); E78.5 Hyperlipidemia, unspecified; I10 Essential (primary) hypertension; R44.3 Hallucinations, unspecified
CPT/HCPCS: 36415; 36600; 71045; 71046; 80048; 80053; 81003; 82330; 82435; 82803; 82947; 82948; 83036; 83735; 84100; 84132; 84295; 85007; 85018; 85025; 85347; 85384; 85610; 85730; 86885; 86900; 86901; 86920; 87081; 93005; 93312; 93325; 93880; 93971; 94002; 94010; 94760; 97116; 97161; 97530; A4333; A4615; A4618; A6258; A6446; A6449; A7000; A7048; C1751; G0378; J0131; J0171; J0690; J1265; J1644; J1815; J1885; J1940; J2060; J2150; J2250; J2270; J2370; J2720; J2930; J3370; J3475; J3480; J3490; J7030; J7040; J7050; J7060; J7120; P9045; P9047

== ENCOUNTER 2021-10-25 09:42 | Emergency (ER) | payer MEDICAID ==
[~2021-10-25] VITALS: Ht 172.7 cm; Wt 85.0 kg
[~2021-10-25 09:42] MED LIST changes: -ALT5C PO; +HYDR-3972 PO; -ISOS30TA84 PO; -ceFAZolin 1000mg inj ONE; -ringers solution, lacted 1,000 ML IV SCH
[2021-10-25 10:58] LABS: BASOPHILS % (AUTO) 0.3 % (0-1); EOSINOPHILS # (AUTO) 0.3 X10'3 (0-0.9); EOSINOPHILS % (AUTO) 1.9 % (0-6); HEMATOCRIT 40.8 % (42.0-52.0); HEMOGLOBIN 13.4 g/dl (14.0-17.9); LYMPHOCYTES # (AUTO) 0.7 X10'3 (1.1-4.8); LYMPHOCYTES % (AUTO) 4.8 % (21-51); MEAN CORPUSCULAR HEMOGLOBIN 27.8 PG (27.0-31.0); MEAN CORPUSCULAR HGB CONC 32.9 g/dL (33.0-36.5); MEAN CORPUSCULAR VOLUME 84.5 FL (78-98); MEAN PLATELET VOLUME 9.3 FL (7.4-10.4); MONOCYTES # (AUTO) 1.9 X10'3 (0-0.9); MONOCYTES % (AUTO) 12.7 % (2-12); NEUTROPHILS # (AUTO) 11.7 X10'3 (1.8-7.7); NEUTROPHILS % (AUTO) 80.3 % (42-75); PLATELET COUNT 232 X10'3 (140-440); RED BLOOD COUNT 4.82 X10'6 (4.70-6.10); RED CELL DISTRIBUTION WIDTH 13.4 % (11.5-14.5); WHITE BLOOD COUNT 14.6 X10'3 (4.5-11.0)
[2021-10-25 11:20] LABS: ALANINE AMINOTRANSFERASE 27 U/L (12-78); ALBUMIN 3.5 G/DL (3.4-5.0); ALBUMIN/GLOBULIN RATIO 0.9 (1.1-1.5); ALKALINE PHOSPHATASE 117 IU/L (46-116); ANION GAP 11 (8-16); ASPARTATE AMINO TRANSFERASE 11 U/L (10-37); BLOOD UREA NITROGEN 24 MG/DL (7-18); BUN/CREATININE RATIO 25.3 (5.4-32.0); CALCIUM 8.9 MG/DL (8.5-10.1); CHLORIDE 103 MMOL/L (99-107); CREATININE 0.95 MG/DL (0.60-1.10); GLUCOSE 106 MG/DL (70-104); SODIUM 140 MMOL/L (135-145); TOTAL CARBON DIOXIDE 26.4 MMOL/L (24-32); TOTAL PROTEIN 7.5 G/DL (6.4-8.2); eGFR 81 ML/MIN
[2021-10-25] MEDS ORDERED: CefTRIAXone 2gm/D5W 50ml BAG 50 ML IV ONE (13:20)
[2021-10-25] MEDS ORDERED: furosemide 10 MG/1 ML 10ml inj IV ONE (13:25)
[2021-10-25 13:48] VITALS: BP 127/82
[2021-10-25] MEDS ORDERED: CEPH250T PO (14:41)
[2021-10-25] MEDS ORDERED: DOXY100C76 PO (14:41)
[2021-10-25] MEDS ORDERED: ALBU6.7H9 INH (14:41)
--- NOTE | 2021-10-25 14:55 | NUR ---
Pt given and understands d/c instructions. IV d/c'd, catheter was intact. Ambulatory with a steady gait.
== END 2021-10-25 14:55 | disposition home or self-care (01) ==
LOC: ER 09:43
DX: J18.9 Pneumonia, unspecified organism (principal); I50.9 Heart failure, unspecified; Z79.899 Other long term (current) drug therapy; Z79.82 Long term (current) use of aspirin
CPT/HCPCS: 36415; 71045; 80053; 83605; 83880; 84145; 84484; 85025; 87040; 93005; 96365; 96375; 99285; J0696; J1940

== ENCOUNTER 2022-06-28 14:30 | Outpatient (CLI) | payer MEDICAID ==
[~2022-06-28 14:30] MED LIST changes: +ALBU6.7H14 INH
== END 2022-06-28 23:59 | disposition home or self-care (01) ==
LOC: RAD 14:30
PROVIDERS: ATTEND Thoracic Surgery (Cardiothoracic Vascular Surgery)
DX: R07.2 Precordial pain (principal); Z98.890 Other specified postprocedural states
CPT/HCPCS: 71250

== ENCOUNTER 2024-08-23 22:38 | Emergency (ER) | payer BC, MEDICAID ==
[~2024-08-23] VITALS: Ht 172.7 cm; Wt 90.9 kg
--- NOTE | 2024-08-23 22:46 | ELECTROCARDIOGRAPH REPORT ---
[facility] Test Date: 2024-08-23 Test Time: 22:43:37 Pat Name: EVANGELINA LANE Department: EMERGENCY ROOM Room: Gender: M Dental Technician: ANDRIY : 1960 Requested By: KATERINA PHILLIPS Order Number: [id number] Reading MD: Measurements Intervals [place] Rate: 62 P: 6 ID: [id number] QRS: -34 QRSD: 106 T: 34 QT: 443 QTc: 450 Interpretive Statements Sinus rhythm Left axis deviation Abnormal R-wave progression, late transition Please click the below link to view image of tracing.
[2024-08-23 22:56] LABS: BASOPHILS # (AUTO) 0.1 X10'3 (0-0.2); BASOPHILS % (AUTO) 1.2 % (0-1); EOSINOPHILS # (AUTO) 0.3 X10'3 (0-0.9); EOSINOPHILS % (AUTO) 3.5 % (0-6); HEMATOCRIT 43.3 % (42.0-52.0); HEMOGLOBIN 14.6 g/dl (14.0-17.9); LYMPHOCYTES # (AUTO) 1.7 X10'3 (1.1-4.8); LYMPHOCYTES % (AUTO) 22.7 % (21-51); MEAN CORPUSCULAR HEMOGLOBIN 28.8 PG (27.0-31.0); MEAN CORPUSCULAR HGB CONC 33.7 g/dL (33.0-36.5); MEAN CORPUSCULAR VOLUME 85.2 FL (78-98); MEAN PLATELET VOLUME 8.9 FL (7.4-10.4); MONOCYTES # (AUTO) 0.9 X10'3 (0-0.9); MONOCYTES % (AUTO) 12.3 % (2-12); NEUTROPHILS # (AUTO) 4.5 X10'3 (1.8-7.7); NEUTROPHILS % (AUTO) 60.3 % (42-75); PLATELET COUNT 192 X10'3 (140-440); RED BLOOD COUNT 5.08 X10'6 (4.70-6.10); RED CELL DISTRIBUTION WIDTH 14.2 % (11.5-14.5); WHITE BLOOD COUNT 7.4 X10'3 (4.5-11.0)
[2024-08-23 23:09] LABS: ALBUMIN 3.7 G/DL (3.4-5.0); ANION GAP 7 (8-16); BLOOD UREA NITROGEN 20 MG/DL (7-18); BUN/CREATININE RATIO 22.7 (10.0-20.0); CALCIUM 8.8 MG/DL (8.5-10.1); CHLORIDE 107 MMOL/L (99-107); CREATININE 0.88 MG/DL (0.60-1.10); GLUCOSE 102 MG/DL (70-104); POTASSIUM 4.2 MMOL/L (3.5-5.1); SODIUM 141 MMOL/L (135-145); TOTAL CARBON DIOXIDE 26.7 MMOL/L (24-32); eCRCL 82 ML/MIN; eGFR 87 ML/MIN
--- NOTE | 2024-08-24 00:06 | Physician Documentation ---
History of Present Illness ~ Chief Complaint: Chest Pain Stated Complaint: CHEST PAIN Time Seen by MD: 00:05 Primary Medical Doctor: chinedu arango urgent Mode of Arrival: POV HPI Patient presents to the emergency room for evaluation of chest discomfort that occurred while he was sitting in bed reading. No current chest discomfort. He was concerned because there was some degree of pins and needles in his left shoulder at the same time however he has had this previously. Patient's medical history is complicated/significant for five way bypass three years ago. 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 He denies one-sided leg pain nausea or vomiting. He denies any shortness of breath. Currently he is asymptomatic Medication Reconciliation Allergies: Coded Allergies: No Known Allergies (Unverified , 08/21/21) Scheduled Albuterol Sulfate (Proventil Hfa), 2 PUFFS INH Q6H Aspirin (Ecotrin*), 1 TAB PO DAILY, (Reported) Atorvastatin Calcium* (Lipitor*), 1 TAB PO DAILY, (Reported) Metoprolol Tartrate (Metoprolol Tartrate), 1 TAB PO BID, (Reported) Scheduled PRN Hydrocodone Bit/Acetaminophen (Hydrocodon-Acetaminophn 10-325 tablet), 1 TAB PO Q6H PRN for MODERATE PAIN 4-6 Past Medical History Past Medical History: *CARDIOVASCULAR*, Hypertension Past Surgical History: coronary bypass surgery Drug Use: none Lives In: Home Review of Systems ROS All review of systems negative except as per HPI Physical Exam Vital Signs: Temperature: 97.7, Source: Oral, Heart Rate: 58, Respiratory Rate: 18, BP: 131/76, Pulse Oximetry: 97, Weight: 90.900 Oxygen Flow Rate: 0 Physical Exam General: Patient is awake, alert, oriented x4 in no acute distress and well appearing.~ Head: Normocephalic and atraumatic. Eyes: Conjunctival normal. EOMI. PERRL. ENT: Mucous membranes moist. Neck: Supple, trachea is midline. Chest: Clear to auscultation bilaterally without rales, rhonchi, or wheezes. There is no accessory muscle use or retractions. Cardiac: RRR without murmurs, gallops, or rubs. Abd: Soft, nondistended, nontender, with normoactive bowel sounds. No guarding, rebound, or rigidity. Extremities: Normal strength. Normal range of motion. No deformities or edema. No calf tenderness to palpation Progress Results/Orders Results/Orders Orders - ALONZO SANDOVAL MD Chest,Single View (08/23/24 22:56) Monitor (08/23/24 22:44) Saline Lock (08/23/24 22:44) Oxygen (08/23/24 22:44) Hs Troponin I W Calculations (08/24/24 01:44) Completed Orders - ALONZO SANDOVAL MD Chest,Single View (08/23/24 22:56) Cbc/Diff (08/23/24 22:44) BMP (08/23/24 22:44) Electrocardiogram (08/23/24 22:44) Hs Troponin I W Calculations (08/23/24 22:44) Hs Troponin I W Calculations (08/24/24 00:44) Vital Signs 08/23/24 08/23/24 08/23/24 08/24/24 22:44 23:46 23:46 01:03 Temp 97.7 97.7 Pulse 65 58 53 Resp 16 18 17 B/P (MAP) 189/93 131/76 (94) 126/70 (88) Pulse Ox 99 97 98 O2 Flow Rate 0 0 Laboratory Tests Test 08/23/24 22:41 08/23/24 22:51 08/24/24 00:38 White Blood Count 7.4 Red Blood Count 5.08 Hemoglobin 14.6 Hematocrit 43.3 Mean Corpuscular Volume 85.2 Mean Corpuscular Hemoglobin 28.8 Mean Corpuscular Hemoglobin Concent 33.7 Red Cell Distribution Width 14.2 Platelet Count 192 Mean Platelet Volume 8.9 Neutrophils (%) (Auto) 60.3 Lymphocytes (%) (Auto) 22.7 Monocytes (%) (Auto) 12.3 H Eosinophils (%) (Auto) 3.5 Basophils (%) (Auto) 1.2 H Neutrophils # (Auto) 4.5 Lymphocytes # (Auto) 1.7 Monocytes # (Auto) 0.9 Eosinophils # (Auto) 0.3 Basophils # (Auto) 0.1 CBC Comment Sodium Level 141 Potassium Level 4.2 Chloride Level 107 Carbon Dioxide Level 26.7 Anion Gap 7 L Blood Urea Nitrogen 20 H Creatinine 0.88 Estimated GFR/1.73 m2 87 BUN/Creatinine Ratio 22.7 H Glucose Level 102 Calcium Level 8.8 Troponin I High Sensitivity 5 5 Albumin 3.7 Chemistry Comments Troponin I High Sens Percent Delta 0 Troponin I Hi Sens Absolute Change 0 EKG/XRAY/CT/US/VASC/MRI EKG : Additional Comment EKG interpreted by myself shows time of 04/22/2042, rate 62, sinus rhythm, left axis deviation, no ST changes Chest X-Ray : Additional Comments Exam: CHEST,SINGLE VIEW CHEST RADIOGRAPH Indication: CP Technique: Single frontal view of the chest was obtained COMPARISON: CHEST,SINGLE VIEW on DOS: 10/25/21, CHEST,SINGLE VIEW on DOS: 09/22/21, CHEST,SINGLE VIEW on DOS: 09/21/21, CHEST,SINGLE VIEW on DOS: 09/20/21 FINDINGS: Lines and Tubes: None Lungs: Clear Pleura: No effusion. No pneumothorax. Cardiomediastinal contours: Unremarkable. Median sternotomy sutures. Bones: Unremarkable IMPRESSION: 1. No acute disease. Medical Decision Making Findings Patient presents to the emergency room for evaluation of chest discomfort while at rest. Differentials include but are not limited to ACS, anxiety, pulmonary embolism, aortic pathology, pneumothorax therefore emergent labs and imaging indicated. Labs and imaging are reassuring. No current symptoms I do not feel patient requires investigation into possible aortic pathology or pulmonary embolism. Heart score of three which is reassuring. Troponins negative x2 Departure Disposition: 01 HOME / SELF CARE / HOMELESS Impression: Primary Impression: Chest pain Condition: Stable Discharge Instructions: Nonspecific Chest Pain, Adult Referrals: NO PRIMARY CARE PROVIDER (PCP) Education Educated: Patient Educated regarding: diagnosis, need for follow up Signature Scribe Signature: No scribe Attestation: The note accurately reflects work and decisions made by me.Alonzo Sandoval MD 08/24/24 01:25 ALONZO SANDOVAL MD Aug 24, 2024 00:06
[2024-08-24 01:38] VITALS: BP 126/89; PULSE 87; RESP 16; TEMP 98; O2SAT 100
== END 2024-08-24 01:39 | disposition home or self-care (01) ==
LOC: ER 22:39
DX: R07.89 Other chest pain (principal); I10 Essential (primary) hypertension; Z95.1 Presence of aortocoronary bypass graft; Z79.899 Other long term (current) drug therapy
CPT/HCPCS: 36415; 71045; 80048; 84484; 85025; 93005; 99285